=== PATIENT | female | born 1970 | race Caucasian/White ===

== ENCOUNTER 2019-05-21 09:52 | Emergency (ER) | payer BC, SELFPAY ==
--- NOTE | 2019-05-21 09:55 | ED.GENADULT ---
HPI - General Adult General Chief complaint: Upper Respiratory Infection Stated complaint: Cough Time Seen by Provider: 05/21/19 10:16 Source: patient Mode of arrival: ambulatory Limitations: no limitations History of Present Illness HPI narrative: 49-year-old female patient presents to the [facility] with complaints of cold symptoms for the past 4 days. Patient states that she has had fever, body aches, chills, coughing. Patient states that she has had some pain to her ribs when she coughs. Patient states that she did not get a flu shot this year. Patient states that she no longer smokes cigarettes but does use an e-cigarette. Patient states she has been taking [id number] cough medication for her symptoms as well as drinking water but it does not seem to be helping. Patient offered a flu swab however notified her that she is outside of the time for antivirals and therefore she has refused a flu swab at this time. Related Data Home Medications Medication Instructions Recorded Confirmed alprazolam 1 mg tablet 1 mg PO BID 02/26/19 04/15/19 quetiapine 50 mg tablet 50 mg PO BID 02/26/19 04/15/19 topiramate 100 mg tablet 100 mg PO BID 02/26/19 04/15/19 tramadol 50 mg tablet 50 mg PO BID PRN tablet 02/26/19 04/15/19 venlafaxine 75 mg capsule,extended 75 mg PO DAILY 02/26/19 04/15/19 release 24 hr Allergies Allergy/AdvReac Type Severity Reaction Status Date / Time No Known Allergies Allergy Verified 05/01/19 08:32 Review of Systems Review of Systems: Narrative: CONSTITUTIONAL: Positive subjective fever, chills, body aches, and sweats. EYES: Denies visual changes, redness, or discharge. ENT: Positive rhinorrhea, congestion, sore throat, denies otalgia. CARDIOVASCULAR: Denies chest pain, palpitations, or edema. RESPIRATORY: Positive cough with dyspnea. GASTROINTESTINAL: Denies abdominal pain, nausea, vomiting, or diarrhea. GENITOURINARY: Denies dysuria or hematuria. SKIN: Denies rash or itching. MUSCULOSKELETAL: Denies back pain, joint pain, or myalgia. NEUROLOGIC: Positive headache, denies numbness, or weakness. PSYCHIATRIC: Denies anxiety or depression. [facility] Past Medical History Medical History (Updated 05/21/19 @ 10:30 by JEFF Doshi) Anxiety Arthritis Back pain COPD (chronic obstructive pulmonary disease) Depression Fibromyalgia History of cervical cancer Migraine Surgical History Surgical History History of hysterectomy History of incisional hernia repair Family History Family History Father Cerebrovascular accident Mother Family history of chronic obstructive pulmonary disease Grandparent Renal disease Unknown Bipolar disorder Social History Social History Smoking status: Current every day smoker Tobacco type: e-cigarettes Alcohol intake: never Gender identity (if verbalized by the patient): Female Comments At the time of my signature I agree with nursing past medical history, surgical, social, and family history. There is no relevant family history pertinent to the presenting complaint. Exam Narrative: Exam Narrative: GENERAL: ill-appearing, well-nourished, and in no acute distress. Patient does appear restless HEAD: Normocephalic, atraumatic. No tenderness noted to frontal maxillary sinuses on palpation EYES: PERRLA and EOMI. ENT: Nares with erythema and edema noted bilaterally, no rhinorrhea or epistaxis. Mucous membranes moist. Posterior pharynx with no erythema, tonsil enlargement, exudates or lesions present. Bilateral TMs are clear with no erythema or foreign bodies in the canal. NECK: Supple. No lymphadenopathy CHEST: Clear to auscultation. No respiratory distress. Patient only able to take shallow breaths due to pain. No tripoding noted. HEART: Regular rate and rhythm. No murmur heard. Abby
[2019-05-21 10:04] VITALS: BP 105/63; PULSE 90; RESP 18; TEMP 37.7; O2SAT 100
--- NOTE | 2019-05-21 10:31 | PC.NURSE ---
no meds showing in med. pyxis.
--- NOTE | 2019-05-21 10:34 | PC.NURSE ---
psych arnp reordering meds.
[2019-05-21] MEDS: IPRATROPIUM BR 0.02% INH SOLN 0.5 MG/2.5 ML VIAL INHALATION (10:39)
[2019-05-21] MEDS: ALBUTEROL SULFATE NEB 2.5 MG/3 ML INH INHALATION (10:39)
== END 2019-05-21 11:20 | disposition home or self-care (01) ==
PROVIDERS: Emergency Provider Nurse Practitioner Family; PCP Emergency Medicine
DX: J06.9 Acute upper respiratory infection, unspecified (principal); M19.90 Unspecified osteoarthritis, unspecified site; M79.7 Fibromyalgia; F41.9 Anxiety disorder, unspecified; F32.9 Major depressive disorder, single episode, unspecified
CPT/HCPCS: 94640; 99213; G0463